=== PATIENT | male | born 1950 | race Caucasian/White ===

== ENCOUNTER 2017-04-26 09:05 | Emergency (ER) | payer MEDICARE ==
[~2017-04-26] VITALS: Ht 175.3 cm; Wt 95.3 kg
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
[2017-04-26 09:50] LABS: BASO # 0.1 x10^3/uL (0.0-0.2); BASO % 1 % (0-3); EOS % 4 % (0-3); HEMATOCRIT 44.8 % (39.0-53.0); HEMOGLOBIN 15.4 g/dL (13.0-17.5); LYMPH % 28 % (24-48); MEAN CORPUSCULAR HEMOGLOBIN 29 pg (25-35); MEAN CORPUSCULAR HGB CONC 34 g/dL (31-37); MEAN CORPUSCULAR VOLUME 85 fL (79-100); MONO % 9 % (0-9); NEUT % 59 % (31-73); PLATELET COUNT 315 x10^3/uL (140-400); RED BLOOD COUNT 5.29 x10^6/uL (4.30-5.70); RED CELL DISTRIBUTION WIDTH 14.5 % (11.5-14.5); WHITE BLOOD COUNT 7.1 x10^3/uL (4.0-11.0)
[2017-04-26 10:22] LABS: BACTERIA,URINE QNS /HPF (0-FEW); SQUAMOUS EPITHELIAL CELL,UR QNS /LPF; WBC,URINE QNS /HPF (0-4)
[2017-04-26 10:23] LABS: RBC,URINE QNS /HPF (0-2)
--- NOTE | 2017-04-26 10:35 | RAD ---
CT scan of the abdomen and pelvis without contrast 04/26/2017 Clinical history: Hematuria with right-sided abdominal pain. Technique: Unenhanced, contiguous, 2 mm axial sections were obtained through the abdomen and pelvis. One or more of the following individualized dose reduction techniques were utilized for this study: 1. Automated exposure control. 2. Adjustment of the mA and/or kV according to patient size. 3. Use of iterative reconstruction technique. Findings: No previous imaging studies are available for comparison. Images through the lung bases demonstrate minimal dependent subsegmental atelectasis bilaterally. Calcified mediastinal lymph nodes are seen. The liver parenchyma has a decreased attenuation consistent with mild fatty infiltration. The spleen, pancreas, and adrenal glands are within normal limits. No renal calculus is seen. There is no evidence of obstruction of either collecting system. No ureteral calculus is noted. A 2 cm rounded low-attenuation lesion is seen involving the midpole of the left kidney. This likely represents a cyst. Mild to moderate atherosclerotic plaque formation is seen involving the abdominal aorta. The abdominal aorta tapers normally. The gallbladder is well-distended. No free fluid or free air is seen within the abdomen. No retroperitoneal lymphadenopathy is seen. There is no evidence of bowel obstruction. The appendix is not visualized. No inflammatory changes are seen surrounding the cecum. Images through the pelvis demonstrate the urinary bladder to be distended with urine. Increased density is seen within the dependent portions of the urinary bladder consistent with hemorrhage/hematoma. There appears to be wall thickening of the posterior inferior aspect of the urinary bladder which could reflect an underlying mass. The prostate gland is enlarged measuring 6.6 x 6.6 x 6.5 cm in transverse, craniocaudal and AP dimensions. This is likely related to BPH. No free fluid is seen. No pelvic or inguinal lymphadenopathy is visualized. Degenerative changes are seen involving the lower thoracic and throughout the lumbar spine and both hips. Impression: 1. The urinary bladder is distended. Hemorrhage/hematoma is seen within the inferior aspect of the urinary bladder. Questionable wall thickening is seen along the posterior inferior wall of the urinary bladder which could reflect an underlying mass. This could be further evaluated with cystoscopy if clinically warranted. 2. The prostate gland is enlarged likely related to BPH.
[2017-04-26 13:30] VITALS: BP 161/92
== END 2017-04-26 13:55 | disposition home or self-care (01) ==
LOC: ER 09:05
DX: R31.9 Hematuria, unspecified (principal); R33.9 Retention of urine, unspecified; I10 Essential (primary) hypertension; E11.9 Type 2 diabetes mellitus without complications; F17.210 Nicotine dependence, cigarettes, uncomplicated
CPT/HCPCS: 36415; 51702; 74176; 81001; 85027; 99285-25